=== PATIENT | male | born 1955 | race Caucasian/White ===

== ENCOUNTER 2018-09-24 17:18 | Observation (INO) | payer OTHER ==
[~2018-09-24] VITALS: Ht 180.3 cm; Wt 103.9 kg
[2018-09-24 17:45] LABS: BASOPHILS # (AUTO) 0.1 (0.0-0.1); BASOPHILS % 0.6 % (0.0-1.0); EOSINOPHILS # (AUTO) 0.1 (0.0-0.4); EOSINOPHILS % 1.3 % (0.0-6.0); HEMOGLOBIN 13.4 g/dL (14.0-18.0); LYMPHOCYTES # (AUTO) 1.9 (1.0-3.2); LYMPHOCYTES % 23.4 % (18.0-39.1); MEAN CORPUSCULAR HEMOGLOBIN 29.8 pg (28-32); MEAN CORPUSCULAR HGB CONC 33.5 g/dL (31-35); MEAN CORPUSCULAR VOLUME 89.1 fL (81-99); MONOCYTES # (AUTO) 0.7 (0.2-0.8); MONOCYTES % 8.5 % (4.4-11.3); NEUTROPHILS # (AUTO) 5.4 (2.1-6.9); NEUTROPHILS % 65.8 % (38.7-80.0); PLATELET COUNT 237 x10e3/uL (140-360); RED BLOOD COUNT 4.49 x10e6/uL (4.3-5.7); RED CELL DISTRIBUTION WIDTH 13.4 % (11.7-14.4)
--- NOTE | 2018-09-24 17:45 | NUR ---
NOTIFIED Romeo JAMES NP BP 87/67, P 72. 1L NS BOLUS ORDERED AT THIS TIME.
[2018-09-24] MEDS ORDERED: SODIUM CHLORIDE 0.9% 1000ML 1,000 ML IV ONE (17:50)
[2018-09-24] MEDS ORDERED: SODIUM CHLORIDE 0.9% 1000ML 1,000 ML ONE (17:54)
[2018-09-24 18:00] LABS: ALANINE AMINOTRANSFERASE 29 IU/L (0-55); ALBUMIN 3.9 g/dL (3.5-5.0); ALBUMIN/GLOBULIN RATIO 1.3 (0.8-2.0); ALKALINE PHOSPHATASE 92 IU/L (40-150); ANION GAP 16.7 mmol/L (8-16); BLOOD UREA NITROGEN 47 mg/dL (7-26); BUN/CREATININE RATIO 19 (6-25); CALCIUM 9.2 mg/dL (8.4-10.2); CARBON DIOXIDE 22 mmol/L (22-29); CHLORIDE 100 mmol/L (98-107); CREATINE KINASE 265 IU/L (30-200); CREATININE, SERUM 2.43 mg/dL (0.72-1.25); EST GLOMERULAR FILTRATION RATE 27 ML/MIN (60-); GLUCOSE 105 mg/dL (74-118); MAGNESIUM 2.5 MG/DL (1.3-2.1); POTASSIUM 3.7 mmol/L (3.5-5.1); SODIUM 135 mmol/L (136-145)
[2018-09-24 18:05] LABS: INR 0.89; PROTHROMBIN TIME 12.9 seconds (11.9-14.5)
[2018-09-24 18:06] LABS: PARTIAL THROMBOPLASTIN TIME 30.6 seconds (23.8-35.5)
--- NOTE | 2018-09-24 18:16 | Diagnostic Imaging Report ---
EXAMINATION: CHEST SINGLE (PORTABLE) INDICATION: Shortness of breath ^ERMD ORDER ^[id number] ^1800 ^Y COMPARISON: None FINDINGS: TUBES and LINES: None. LUNGS: Lungs are well inflated. Perihilar peribronchial hazy opacity could be due to bronchitis. There is no evidence of pneumonia or pulmonary edema. PLEURA: No pleural effusion or pneumothorax. HEART AND MEDIASTINUM: The cardiomediastinal silhouette is unremarkable. BONES AND SOFT TISSUES: No acute osseous lesion. Soft tissues are unremarkable. UPPER ABDOMEN: No free air under the diaphragm. IMPRESSION: Perihilar peribronchial hazy opacity could be due to bronchitis. Signed by: Dr. Joshua Larsen M.D. on 09/24/2018 6:13 PM
--- NOTE | 2018-09-24 19:00 | NUR ---
VERBAL REPORT GIVEN TO ERWIN COBB.
--- NOTE | 2018-09-24 19:00 | NUR ---
RECEIVED REPORT FROM ERWIN TAVAREZ DAY SHIFT NURSE.
[2018-09-24 20:11] LABS: BILIRUBIN,URINE NEGATIVE (NEGATIVE); CLARITY,URINE CLEAR (CLEAR); COLOR,URINE YELLOW (YELLOW); KETONES,URINE NEGATIVE (NEGATIVE); LEUKOCYTE ESTERASE ,URINE NEGATIVE (NEGATIVE); NITRITE,URINE NEGATIVE (NEGATIVE); PROTEIN,URINE DIPSTICK NEGATIVE (NEGATIVE); URINE UROBILINOGEN 0.2 mg/dL (0.2 - 1)
[2018-09-24 20:25] LABS: RBC,URINE 0-5 /HPF (0-5)
[2018-09-24] MEDS ORDERED: ALBUTEROL/IPRATROPIUM 3 ML NEB NEB PRN (22:30)
--- OUTSIDE RECORDS SUMMARY | 2018-09-24 22:39 | XMS REPORT ---
Author Author [facility] Address Unknown Phone Unavailable Care Team Providers Care Banking Representative Name Role Phone Monie CLAYTON Unavailable Unavailable Problems This patient has no known problems. Allergies, Adverse Reactions, Alerts This patient has no known allergies or adverse reactions. Medications This patient has no known medications. Results Test Description Test Time Test Comments Text Results Atomic Results Result Comments CHEST SINGLE (PORTABLE) 2018-09-24 18:12:00 [place] [address] Patient Name: CARMEN NGUYEN MR #: [id number] : 1955 Age/Sex: 63/M Req #: [id number] Adm Physician: Ordered by: PETER JAMES REDUCING SALON ATTENDANT Report #: [id number] Location: ER Room/Bed: Procedure: [id number] DX/CHEST SINGLE (PORTABLE) Exam Date: 09/24/18 Exam Time: 1800 REPORT STATUS: Signed EXAMINATION: CHEST SINGLE (PORTABLE) IN DICATION: Shortness of breath ERMD ORDER [id number] 1800 Y COMPARISON: None FINDINGS: TUBES and LINES: None. LUNGS: Lungs are well inflated. Perihilar peribronchial hazy opacity could be due to bronchitis. There is no evidence of pneumonia or pulmonary edema. PLEURA: No pleural effusion or pneumothorax. HEART AND MEDIASTINUM: The cardiomediastinal silhouette is unremarkable. BONES AND SOFT TISSUES: No acute osseous lesion. Soft tissues are unremarkable. UPPER ABDOMEN: No free air under the diaphragm. IMPRESSION: Perihilar peribronchial hazy opacity could be due to bronchitis. Signed by: Dr. Joshua Larsen M.D. on 09/24/2018 6:13 PM Dictated By: JOSHUA LARSEN MD, MD 12 Transcribed By: ESTHER on 09/24/181812 COPY TO: PETER JAMES NP
[2018-09-24] MEDS: CEFTRIAXONE SOD 1 GM VIAL IV SCH (23:42)
[2018-09-25] VITALS (9 sets, daily range): BP systolic 92–117; BP diastolic 52–74
--- NOTE | 2018-09-25 01:18 | NUR ---
PATIENT RECEIVED FROM EMERGENCY DEPARTMENT PER WHEELCHAIR AT 0042. HE'S ALERT AND ORIENTED X4, NO RESPIRATORY DISTRESS OBSERVED. SKIN INTEGRITY INTACT, HE DENIES DIZZINESS AND PAIN AT THIS TIME. ORIENTED TO SURROUNDINGS, CALL LIGHT WITHIN EASY REACH, INSTRUCTED TO CALL FOR ASSISTANCE UPON GETTING OUT OF THE BED.
[2018-09-25 02:57] LABS: CREATINE KINASE MB 2.2 ng/mL (0-5.0)
--- NOTE | 2018-09-25 03:47 | NUR ---
PATIENT IS SOUNDLY ASLEEP, NO DISTRESS OBSERVED. BED ALARM ON, CALL LIGHT WITHIN EASY REACH.
[2018-09-25] MEDS: CEFTRIAXONE SOD 1 GM VIAL IV SCH (09:08)
[2018-09-25] MEDS ORDERED: HYDROCHLOROTHIA25 MG (09:42)
[2018-09-25] MEDS ORDERED: LISINOPRIL-HCT1 EAC1 PO (09:43)
[2018-09-25] MEDS ORDERED: ALFUZOSIN HCL10 MG PO (09:44)
[2018-09-25] MEDS ORDERED: LIPITOR20 MG PO (09:44)
[2018-09-25 10:23] LABS: CREATINE KINASE MB 1.6 ng/mL (0-5.0)
--- NOTE | 2018-09-25 11:30 | Diagnostic Imaging Report ---
EXAM: Renal Ultrasound INDICATION: KETURAH vs CKD COMPARISON: None TECHNIQUE: Transverse and longitudinal images of the kidneys and bladder were obtained. FINDINGS: Right Kidney: Length: Measures 12.3 x 5.7 x 5.7 cm Appearance: Normal echogenicity. Collecting system: No hydronephrosis There is a 0.7 cm echogenic lesion in the mid pole without shadowing. Left Kidney: Length: Measures 12.4 x 6.3 x 4.7 cm Appearance: Normal echogenicity. Collecting system: No hydronephrosis Stones: None Cyst/Mass: None Bladder: Partially decompressed. Bilateral ureteral jets are seen. IMPRESSION: No acute sonographic abnormality. No evidence of hydronephrosis. A 7 mm echogenic focus within the right mid pole kidney without shadowing may represent a nonobstructing stone or alternatively a small angiomyolipoma. Signed by: Dr. Luisa Sanabria MD on 09/25/2018 11:26 AM
[2018-09-25 12:08] LABS: CREATININE,URINE RANDOM 74.81 mg/dL (63-166); SODIUM,URINE 67 mmol/L
[2018-09-25 12:36] LABS: TOTAL PROTEIN, URINE < 6.8 mg/dL (1-14)
--- NOTE | 2018-09-25 15:48 | NUR ---
SOCIAL WORK INITIAL ASSESSMENT [employer] Machine Feeder to bedside to discuss plan of care with patient/family. CM/SW role and care transitions discussed. Anticipated discharge plan discussed along with duration of care. CM/SW discussed patients right to make decisions in care. CM/SW work hours given. Patient lives: IN OWN HOUSE WITH FAMILY Admit/Transfer: AED FROM HOME POA/Emergency contact: SHAKA [phone] Current/Previous Home Health: NONE PCP/Follow-up Care: ABAJENNIFER Current/Previous DME: NONE Other Services: NONE Employment Status: [employer]INT [employer] Areas of Concerns: VAPE Referral Needs: NONE Education Needs: NONE IMM/MARTÍNEZ given and signed (if applicable): NA Goal for discharge: RETURN HOME CM/SW left business card at the bedside with contact information. Name and number was also written on the patients whiteboard. Patient verbalized understanding of discussion. CM will follow-up with ongoing discharge and transition of care needs.
--- NOTE | 2018-09-25 16:33 | Consultation ---
DATE OF CONSULTATION: September 25, 2018 NEPHROLOGY CONSULTATION CHIEF COMPLAINT: Dizziness. REASON FOR CONSULTATION: Acute kidney injury versus chronic kidney disease. HPI: This is a 63-year-old male, morbidly obese, with past medical history of hypertension and hyperlipidemia as well as BPH, who comes into the ED with complaints of dizziness on ambulation as well as at rest. The patient reports this has been ongoing for the last several weeks but he did not seek any medical attention. Yesterday, he noted that he was very lightheaded and dizzy. He felt as if he needed to pass out. He came to the ED for further evaluation. On lab review, the patient was found to have acute kidney injury versus chronic kidney disease with a creatinine of 2.4, and nephrology was consulted. The patient denies any history of herbal supplements or any medications [id number]. Occasionally, he will take some Motrin for chronic pain he reports twice a week at least. No reports of any diabetes, but he does have hypertension. No reports of chronic urinary tract infections, but he does have BPH issues. The patient was seen and evaluated at bedside in the ER, currently doing well with no other issues at this time. REVIEW OF SYSTEMS PERTINENT POSITIVES: Lightheadedness, dizziness, vertigo. PERTINENT NEGATIVES: Denies any chest pain, palpitations, nausea, vomiting, diarrhea, dysuria, hematuria, frequency, urgency, lightheadedness, cough, congestion, fever or any other complaints. The rest of the 14-point review of systems have been reviewed with the patient and are negative. ALLERGIES: NO KNOWN DRUG ALLERGIES. HOME MEDICATIONS 1. Lipitor 40 mg at bedtime. 2. Hydrochlorothiazide 25 mg daily. 3. Alfuzosin 10 mg extended release daily. 4. Lisinopril and hydrochlorothiazide 20 and 25 mg 1 tab daily. PAST MEDICAL HISTORY: He reports no history of hypertension or diabetes. SOCIAL HISTORY: No drugs. No alcohol. He does not smoke. Good social support. VITAL SIGNS: Temperature 96.6, pulse 76, respiratory rate 19, blood pressure 113/67, pulse ox 92% on room air. LABS: White count 8.2, hemoglobin 13, hematocrit 40, platelets 237. Coagulation: PT 12.9, INR 0.89, PTT 30.6. PHYSICAL EXAMINATION GENERAL: No acute distress. Alert and oriented x3. Cooperative on examination. HEENT: Head is normocephalic and atraumatic. Eyes: Pupils are equal, round and reactive to light bilaterally. Extraocular movements intact bilaterally. NECK: Supple. Good range of motion. Throat with no evidence of any erythema or exudates in the posterior pharynx. Has poor dentition. PULMONARY: Clear to auscultation bilaterally. No wheezing. No rales. No rhonchi. No crackles appreciated. CARDIOVASCULAR: Positive S1 and S2. No murmurs, rubs or gallops appreciated. ABDOMEN: Soft, nondistended and nontender to palpation. Bowel sounds present. MUSCULOSKELETAL: Strength is 5/5 throughout. No evidence of any musculoskeletal deficit on examination. No weakness appreciated. NEUROLOGICAL: Cranial nerves II through XII are grossly intact. No evidence of any neurological deficits on exam. SKIN: Intact. Warm to touch. Good cap refill. PSYCHIATRIC: Normal affect and mood. EXTREMITIES: No edema. Good range of motion throughout. IMPRESSION 1. Vertigo and dizziness, unknown etiology. 2. Acute kidney injury, unsure of patient's baseline. 3. Lower extremity edema. PLAN: At this time, from a renal standpoint, it is very difficult to understand what his true baseline creatinine is. He has not seen a doctor in more than a year, but he was never told he had renal dysfunction. At this time, the etiology could be from dehydration as he reports he has not been able to drink or eat much over the last few days. I will go ahead and order a renal ultrasound, urine electrolytes including urine sodium and creatinine, urine nfcgffd-mu-oaskexescl, rjacgcdfaxnq-kj-bzdbcmmshy ratio as well as urine eosinophils. I feel like this is likely to be an acute process leading to underlying some sort of chronic kidney disease. He does report having a history of hypertension for a significant number of years but denies any diabetes. Will continue to follow with you. Job#: [id number]
--- NOTE | 2018-09-25 16:44 | History and Physical ---
HISTORY OF PRESENT ILLNESS: A 63-year-old white male with past medical history positive mainly for hypertension. Apparently he has been having dizziness, swelling of both lower extremities for a few weeks prior to admission, along with neck pain. He was seen by his primary care physician, who started patient on a diuretic. Apparently the swelling went away. Patient came here because of dizziness. REVIEW OF SYSTEMS: CARDIOVASCULAR: No chest pain or palpitations. RESPIRATORY: He does have shortness of breath only when he is climbing three flights of stairs but not on regular walking. No cough, no phlegm. GENITOURINARY: No frequency, no dysuria. GASTROINTESTINAL: No nausea, no vomiting, no diarrhea. ALLERGIES: HE IS NOT ALLERGIC TO ANY MEDICATIONS. SOCIAL HISTORY: He claims that he does not smoke, does not drink. PAST MEDICAL HISTORY: Mainly positive for hypertension. PHYSICAL EXAMINATION: VITAL SIGNS: Blood pressure 114/69, temperature 96.6, heart rate 64 per minute, respiratory rate 16 per minute. Oxygen saturation 94%. HEART: Shows regular rhythm. Normal S1 and S2 sounds. LUNGS: Clear bilaterally. ABDOMEN: Soft. EXTREMITIES: Show no evidence of cyanosis, edema or trauma. On the BMP: Sodium 135, potassium 3.7, chloride 100, CO2 22, BUN is 47, creatinine 2.43, and glucose 105. On the CBC: White blood count 8.21, hemoglobin 13.4, hematocrit 40.0, platelet count 237,000. PT 12.9, INR 0.99, PTT 30.6. AST 19, ALT 29, total bilirubin 0.9, alkaline phos 92. A renal ultrasound was done. It showed some evidence of possible intraparenchymal kidney stone or angiomyolipoma but no evidence of any atrophic kidneys or any other lesion. FINAL IMPRESSION: 1. Acute on chronic renal failure stage 3. 2. Hypertension with chronic insufficiency. 3. Dizziness. PLAN OF TREATMENT: We are going to start IV fluid, recheck the BMP tomorrow. We are going to consult Dr. Oleary from nephrology. Resume home medications. Job#: [id number] EV
[2018-09-25 18:35] LABS: CREATINE KINASE 199 IU/L (30-200)
--- NOTE | 2018-09-25 19:35 | NUR ---
CALL PLACE OUT TO DR LEYVA REGARDING CLARIFICATION OF IV FLUID ORDER, AWAITING CALL BACK FROM THE DOCTOR.
[2018-09-25] MEDS: DEXTROSE 5%/0.45% SOD CHL 1,000 ML IV SCH (20:20)
[2018-09-25] MEDS ORDERED: ATORVASTATIN 20 MG TAB PO SCH (21:00)
[2018-09-25] MEDS ORDERED: ATORVASTATIN 40 MG TAB PO SCH (21:00)
[2018-09-25] MEDS: CEFTRIAXONE SOD 1 GM/NS 50 ML 50 ML IV SCH (21:28)
--- NOTE | 2018-09-25 23:42 | NUR ---
PATIENT CONDITION IS STABLE WITHOUT ACUTE DISTRESS, HE DENIES PAIN. SNACKS GIVEN, CALL LIGHT WITHIN EASY REACH.
[2018-09-26 00:10] VITALS: BP 126/78
--- NOTE | 2018-09-26 03:10 | NUR ---
PATIENT IS ASLEEP, HE'S EASY TO AROUSE. HE DENIES PAIN, NO RESPIRATORY DISTRESS OBSERVED.
[2018-09-26 06:00] VITALS: BP 113/65
[2018-09-26 07:56] LABS: ANION GAP 15.3 mmol/L (8-16); CALCIUM 9.5 mg/dL (8.4-10.2); CREATININE, SERUM 1.32 mg/dL (0.72-1.25); POTASSIUM 4.3 mmol/L (3.5-5.1)
[2018-09-26 08:30] VITALS: BP 144/74
[2018-09-26 08:35] VITALS: BP 144/74
[2018-09-26] MEDS: CEFTRIAXONE SOD 1 GM/NS 50 ML 50 ML IV SCH (09:15)
[2018-09-26] MEDS: DEXTROSE 5%/0.45% SOD CHL 1,000 ML IV SCH (09:15)
--- NOTE | 2018-09-26 12:35 | Progress Note ---
DATE: September 26, 2018 NEPHROLOGY PROGRESS NOTE SUBJECTIVE: Patient is doing much better today with no complaints. His renal function improved after IV fluid hydration. He did look pretty dry yesterday. He now reports he is feeling better. No more dizziness. OBJECTIVE VITAL SIGNS: Temperature 98.6, pulse 66, respiratory rate 16, blood pressure 144/74, pulse ox 96% on room air. GENERAL: Not in acute distress. Alert and oriented x3. Cooperative on examination. HEENT: Head is normocephalic and atraumatic. Eyes: Pupils are equal, round, and reactive to light bilaterally. Extraocular movements intact bilaterally. Throat with no evidence of any erythema or exudates in the posterior pharynx. Has poor dentition. NECK: Supple. Good range of motion. PULMONARY: Clear to auscultation bilaterally. No wheezing. No rales. No rhonchi. No crackles appreciated. CARDIOVASCULAR: Positive S1 and S2. No murmurs, rubs, or gallops appreciated. ABDOMEN: Soft, nondistended and nontender to palpation. Bowel sounds are present. MUSCULOSKELETAL: Strength is 5/5 throughout. No evidence of any musculoskeletal deficit on examination. No weakness appreciated. NEUROLOGICAL: Cranial nerves II through XII grossly intact. No evidence of any neurological deficits on exam. SKIN: Intact. Warm to touch. Good cap refill. PSYCHIATRIC: Normal affect and mood. EXTREMITIES: No edema. Good range of motion throughout. LAB FINDINGS: Show white count 8.3, hemoglobin 13.4, hematocrit is 40, platelets of 237. Chemistries: Sodium is 138, potassium 4.3, chloride is 104, bicarb 23, anion gap of 15, BUN is 28, creatinine is 1.32 down from 2.4, calcium is 9.5. LFTs were normal. Troponins were all negative. Urinalysis were negative. negative. IMPRESSION 1. Vertigo and dizziness, now resolved. 2. Acute kidney injury secondary to prerenal azotemia, now resolved. 3. Lower extremity edema. PLAN: At this time, his creatinine improved. This is likely due to prerenal azotemia and dehydration. We will continue with IV fluids for now. Renal ultrasound was performed, showed a right kidney of 12.3 and the left kidney of 12.3 cm on both sides. Otherwise, there is no evidence of hydronephrosis secondary to medical renal disease. From the renal standpoint, he has been cleared for discharge home. His electrolytes were stable. He is going to repeat labs in about a week with his PCP. In the event if his creatine is much worse or not even any better, then he will need to followup with manager drug safety as an outpatient. I discussed this with the family at bedside. Job#: [id number] JONI
[2018-09-26] MEDS ORDERED: NORVASC5 MG PO (13:34)
--- NOTE | 2018-09-27 03:17 | Discharge Summary ---
HISTORY AND HOSPITAL COURSE: The patient is a 63-year-old male who has past medical history positive for hypertension. Apparently, he was having swelling on the leg. He was started on lisinopril with hydrochlorothiazide. The patient became dizzy and came to the emergency room. He was found to have acute renal insufficiency, which after IV fluids improved significantly. The patient was discontinued from the lisinopril and hydrochlorothiazide. I am going to prescribe Norvasc 5 mg daily. He is going to have a stress test and an echocardiogram as an outpatient to evaluate him for swelling on the legs. PHYSICAL EXAM VITAL SIGNS: Blood pressure 144/74, temperature 96.0, heart rate 66 per minute, respiratory rate 16 per minute, and oxygen saturation 96%. HEART: Regular rhythm. Normal S1 and S2 sounds. LUNGS: Clear bilaterally. ABDOMEN: Soft. EXTREMITIES: No evidence of cyanosis, edema, or trauma. LABORATORY DATA: On BMP, sodium 138, potassium 4.3, chloride 104, CO2 of 23, BUN 28, creatinine 1.32, and glucose 114. On the CBC, white blood cell count 8.21, hemoglobin 13.4, hematocrit 40.0, and platelet count 237,000. PT 12.9, INR 0.89, and PTT 30.6. AST 19, ALT 29, total bilirubin 0.9, and alkaline phosphatase 92. FINAL IMPRESSION 1. Soljb-ky-aurhlbx renal failure. 2. Hypertension with chronic renal insufficiency. 3. . PLAN OF TREATMENT: He is going to be discharged on Norvasc 5 mg daily. Follow up with his internal medicine physician as an outpatient. ATA LEYVA MD Job#: [id number] GAU
== END 2018-09-26 14:02 | disposition home or self-care (01) ==
LOC: ER 17:18 → ERHOLD 22:36 → IMCU 09-25 00:51
PROVIDERS: ADMIT Internal Medicine; ATTEND Internal Medicine
DX: R42 Dizziness and giddiness (principal); N17.9 Acute kidney failure, unspecified; I12.9 Hypertensive chronic kidney disease with stage 1 through stage 4 chronic kidney disease, or unspecified chronic kidney disease; N18.9 Chronic kidney disease, unspecified; R60.0 Localized edema; E78.5 Hyperlipidemia, unspecified; N40.0 Benign prostatic hyperplasia without lower urinary tract symptoms; J40 Bronchitis, not specified as acute or chronic; Z88.0 Allergy status to penicillin; Z91.048 Other nonmedicinal substance allergy status; Z87.891 Personal history of nicotine dependence; Z83.3 Family history of diabetes mellitus; Z82.49 Family history of ischemic heart disease and other diseases of the circulatory system; E66.01 Morbid (severe) obesity due to excess calories; Z68.31 Body mass index [BMI] 31.0-31.9, adult
CPT/HCPCS: 36415 ×2; 71045; 76770; 80048; 80053; 81001; 82044; 82270; 82550 ×2; 82553 ×2; 82570; 83735; 84156; 84300; 84484 ×2; 85025; 85610; 85730; 86850; 86900; 87086; 93005; 96367; 99284; G0378 ×3; J0696 ×4; J7030